=== PATIENT | male | born 1945 | race Caucasian/White ===

== ENCOUNTER → 2018-10-20 | Outpatient (CLI) | payer MEDICARE, BC ==
[~2018-10-20] MED LIST: ALIGN4 MG PO; ASPIRIN81 M2 PO; CENTRUM SILVER1 EAC4 PO; CHLORTHALIDONE25 MG PO; CRESTOR20 MG PO; FISH OIL 1,001000 M2 PO; GLUCOSAMINE CH1 EAC1 PO; METAMUCIL660 GM PO; METHOCARBAMOL500 M1 PO; NAPROSYN500 MG PO; NEXIUM40 MG PO; NORVASC10 MG PO; TRAMADOL 50 MG50 MG PO; TYLENOL EXTRA500 MG PO
== END ==
LOC: M.PC 09:13
DX: M47.816 Spondylosis without myelopathy or radiculopathy, lumbar region (principal); M51.36 Other intervertebral disc degeneration, lumbar region; M47.812 Spondylosis without myelopathy or radiculopathy, cervical region; M50.30 Other cervical disc degeneration, unspecified cervical region

== ENCOUNTER → 2018-12-01 | Outpatient (CLI) | payer MEDICARE, BC | LOC: M.PC 05:20 | DX: M47.816 Spondylosis without myelopathy or radiculopathy, lumbar region (principal); M51.36 Other intervertebral disc degeneration, lumbar region; M47.812 Spondylosis without myelopathy or radiculopathy, cervical region; M50.30 Other cervical disc degeneration, unspecified cervical region ==

== ENCOUNTER → 2019-01-26 | Outpatient (CLI) | payer MEDICARE, BC | LOC: M.PC 04:07 | DX: M47.816 Spondylosis without myelopathy or radiculopathy, lumbar region (principal); M51.36 Other intervertebral disc degeneration, lumbar region; M47.812 Spondylosis without myelopathy or radiculopathy, cervical region; M50.30 Other cervical disc degeneration, unspecified cervical region ==